=== PATIENT | male | born 1950 | race Hispanic/Latino ===

== ENCOUNTER 2022-04-01 08:28 | Emergency (ER) | payer MEDICARE ==
[~2022-04-01] VITALS: Ht 172.7 cm; Wt 93.0 kg
[2022-04-01] MEDS ORDERED: KETOROLAC TROMETHAMINE 30 MG/ML VIAL IV STA (08:42)
[2022-04-01] MEDS ORDERED: ONDANSETRON HCL INJ 2MG/ML 2ML 2 MG/ML VIAL IV STA (08:42)
[2022-04-01] MEDS ORDERED: SODIUM CHLORIDE 0.9% 1000ML 1,000 ML IV ONE (08:45)
[2022-04-01 08:49] LABS: BASOPHILS # (AUTO) 0.1 (0.0-0.1); BASOPHILS % 0.5 % (0.0-1.0); EOSINOPHILS # (AUTO) 0.1 (0.0-0.4); EOSINOPHILS % 0.5 % (0.0-6.0); HEMOGLOBIN 13.2 g/dL (14.0-18.0); LYMPHOCYTES % 25.7 % (18.0-39.1); MEAN CORPUSCULAR HEMOGLOBIN 28.6 pg (28-32); MEAN CORPUSCULAR VOLUME 86.8 fL (81-99); MONOCYTES # (AUTO) 0.7 (0.2-0.8); MONOCYTES % 5.7 % (4.4-11.3); NEUTROPHILS # (AUTO) 7.8 (2.1-6.9); NEUTROPHILS % 67.4 % (38.7-80.0); PLATELET COUNT 325 x10e3/uL (140-360); RED BLOOD COUNT 4.61 x10e6/uL (4.3-5.7); RED CELL DISTRIBUTION WIDTH 11.9 % (11.7-14.4)
[2022-04-01 09:19] LABS: ALBUMIN 4.3 g/dL (3.5-5.0); ANION GAP 20.5 mmol/L (8-16); CALCIUM 9.8 mg/dL (8.4-10.2); CREATININE, SERUM 1.14 mg/dL (0.72-1.25); POTASSIUM 3.5 mmol/L (3.5-5.1)
[2022-04-01 10:31] LABS: CLARITY,URINE CLEAR (CLEAR); COLOR,URINE YELLOW (YELLOW); KETONES,URINE 1+ (NEGATIVE); LEUKOCYTE ESTERASE ,URINE NEGATIVE (NEGATIVE); NITRITE,URINE NEGATIVE (NEGATIVE); PROTEIN,URINE DIPSTICK >=300 (NEGATIVE); URINE UROBILINOGEN 0.2 mg/dL (0.2 - 1)
[2022-04-01 10:38] LABS: EPITHELIAL CELLS,URINE MODERATE /LPF
[2022-04-01 10:39] LABS: BACTERIA,URINE MODERATE /HPF; RBC,URINE 0-5 /HPF (0-5)
[2022-04-01] MEDS ORDERED: CEFTRIAXONE 1 GM VIAL IV ONE (11:00)
[2022-04-01] MEDS ORDERED: CEPHALEXIN500 MG PO (11:43)
[2022-04-01 11:56] VITALS: BP 169/86
== END 2022-04-01 12:00 | disposition home or self-care (01) ==
LOC: ER 08:30
DX: M54.50 Low back pain, unspecified (principal); N39.0 Urinary tract infection, site not specified; I10 Essential (primary) hypertension; R94.31 Abnormal electrocardiogram [ECG] [EKG]; Z87.442 Personal history of urinary calculi
CPT/HCPCS: 36415; 72100; 80053; 81001; 83690; 85025; 87086; 87186; 93005; 99284; J0696; J1885; J7030

== ENCOUNTER 2023-10-19 04:15 | Emergency (ER) | payer MEDICARE ==
[~2023-10-19] VITALS: Ht 172.7 cm; Wt 93.0 kg
[2023-10-19 04:15] VITALS: O2SAT 99
[~2023-10-19 04:15] MED LIST: CEFDINIR300 MG PO; CEPHALEXIN500 MG PO; MEDROL4 M2 PO; METHOCARBAMOL750 MG PO
[2023-10-19] MEDS: KETOROLAC TROMETHAMINE 30 MG/ML VIAL IM STA (05:15)
== END 2023-10-19 04:30 | disposition home or self-care (01) ==
LOC: ER 04:21
DX: M54.42 Lumbago with sciatica, left side (principal); I10 Essential (primary) hypertension; Z87.442 Personal history of urinary calculi
CPT/HCPCS: 99282; J1885